=== PATIENT | female | born 1990 | race Two or more races ===

== ENCOUNTER 2018-08-10 06:35 | Inpatient (IN) | payer OTHER ==
[2018-08-10] MEDS: ELECTROLYTE-148 SOLN 1,000 ML IV SCH (07:00)
[2018-08-10 07:36] VITALS: BMI 31.2
[2018-08-10] MEDS ORDERED: IBUPROFEN 600 MG TABLET (FP) PO PRN (07:36)
[2018-08-10] MEDS ORDERED: METHYLERGONOVINE MALEATE 0.2 MG/1 ML AMP IM PRN (07:36)
[2018-08-10] MEDS ORDERED: OXYTOCIN 20 UNITS in 0.9% NS 20 UNIT/1,000 ML INFUS.BAG IV ONE (07:37)
[2018-08-10] MEDS ORDERED: WITCH HAZEL 50% (TUCKS) 40 PAD/JAR PAD TP PRN (07:38)
[2018-08-10] MEDS ORDERED: KETOROLAC TROMETHAMINE 30 MG/1 ML VIAL ONE (07:40)
[2018-08-10] MEDS ORDERED: ceFAZolin SODIUM 1 GM VIAL ONE (07:40)
[2018-08-10] MEDS ORDERED: PHENYLEPHRINE HCL 10 MG/1 ML SINGLE DOSE VIAL ONE (07:40)
[2018-08-10] MEDS ORDERED: CITRIC ACID/SODIUM CITRATE 30 ML UNIT-DOSE CUP PO ONE (07:41)
[2018-08-10] MEDS ORDERED: D5W-LR W/ 20 UNITS OXYTOCIN 1,000 ML IV SCH (07:45)
--- NOTE | 2018-08-10 07:48 | HP ---
Past Medical History - Primary Care Physician PCP:: Maddy Jeffers - Admission Chief Complaint: Prevcious Myomectomy. Previous Section History Source: Patient - Past Medical History ...: 3 ...Para: 1 ...Term: 1 ...: 0 ...Spon : 0 ...Induced : 1 ...Multiple Gestation: 0 ...EDC by Sono: 08/10/18 - Past Surgical History Past Surgical History: Yes: Hx Myomectomy: Yes Hx Transabdominal Cerclage: No - Smoking History Smoking history: Never smoked Have you smoked in the past 12 months: No Aproximately how many cigarettes per day: 0 - Alcohol/Substance Use Hx Alcohol Use: No History of Substance Use: reports: None - Social History History of Recent Travel: No Home Medications - Allergies Allergies/Adverse Reactions: Allergies Allergy/AdvReac Type Severity Reaction Status Date / Time morphine AdvReac Mild Itching Verified 08/10/18 07:18 - Home Medications Home Medications: Ambulatory Orders Vitamins (Sjr) - 1 tab PO DAILY 01/03/14 Physical Exam - Maternity Vital Signs: Vital Signs Temperature 98.2 F 08/10/18 07:15 Pulse Rate 91 H 08/10/18 07:15 Respiratory Rate 18 08/10/18 07:15 Blood Pressure 137/84 08/10/18 07:15 O2 Sat by Pulse Oximetry (%) Constitutional: Yes: Well Nourished, No Distress Cardiovascular: Yes: WNL, Regular Rate and Rhythm Lungs: Clear to auscultation Breast(s): Yes: WNL - Abdominal Exam/OB Fundal Height: 40 Number of Fetuses: Single Presentation: Vertex Contractions: No Category: I Decelerations: None - Vaginal Exam/OB Amniotic Membrane Status: Intact Presentation: Vertex/Position Station: -2 - Physical Exam Integumentary: Yes: WNL ...Motor Strength: WNL Psychiatric: Yes: WNL, Alert, Oriented Problem List - Problems (1) Previous delivery affecting , antepartum Code(s): O34.219 - MATERNAL CARE FOR UNSP TYPE SCAR FROM PREVIOUS DEL (2) H/O myomectomy Code(s): Z98.890 - OTHER SPECIFIED POSTPROCEDURAL STATES (3) 38 weeks gestation of Code(s): Z3A.38 - 38 WEEKS GESTATION OF Assessment/Plan previous section previous myomectomy 38 weeks GBS positive Fibroid uterus Plan Repeat Section
--- NOTE | 2018-08-10 09:06 | OP ---
Operative Note - Note: Operative Date: 08/10/18 Pre-Operative Diagnosis: Previous Section. Previous Myomectomy. IUP at 38 week Operation: Repeat Section. Abdmoninal Myomectomy Findings: 3 cm myoma removed from uterus Live female delivered in OT position Post-Operative Diagnosis: Same as Pre-op Surgeon: Maddy Jeffers Cleaner Laboratory Equipment: Carloz Cortse Anesthesiologist/SUPERVISOR SULFURIC ACID PLANT: Shashank Stevenson Anesthesia: Spinal Estimated Blood Loss (mls): 600 Operative Report Dictated: Yes
[2018-08-10 09:07] LABS: ARTERIAL BLD GAS O2 SATURATION 18.2 % (90-98.9); ARTERIAL BLOOD GAS BASE EXCESS -2.7 meq/l (-2-2); ARTERIAL BLOOD GAS PO2 13.9 mmHg (80-100); ARTERIAL BLOOD GAS pH 7.24 (7.35-7.45)
[2018-08-10 09:11] LABS: VENOUS PC02 54.6 mmHg (38-52); VENOUS PH 7.29 (7.32-7.42)
[2018-08-10] MEDS ORDERED: ONDANSETRON 4 MG/2 ML VIAL IVPUSH PRN (09:16)
[2018-08-10] MEDS ORDERED: TUBERCULIN PPD 5 TU/0.1ML SYRINGE (IN PATIENT USE ONLY) ID ONE (09:21)
[2018-08-10] MEDS ORDERED: LACTATED RINGERS SOLUTION 1,000 ML IV SCH (09:30)
[2018-08-10] MEDS: PRENATAL VITAMINS W/ FOLIC ACID TABLET (FP) PO SCH (11:27)
[2018-08-10] MEDS: OXYTOCIN 20 UNITS in 0.9% NS 20 UNIT/1,000 ML INFUS.BAG IV SCH ×2 (11:55→20:29)
[2018-08-10] MEDS: IBUPROFEN 800 MG/8 ML IJ IVPB PRN ×2 (14:05→21:45)
[2018-08-10] MEDS ORDERED: MEPERIDINE HCL CARPU-JECT 25 MG/1 ML DISP.SYRIN IM PRN (17:09)
[2018-08-10] MEDS ORDERED: PROMETHAZINE HCL 25 MG/1 ML VIAL IM PRN (17:11)
--- NOTE | 2018-08-10 19:29 | OP ---
DATE OF OPERATION: 08/10/2018 PREOPERATIVE DIAGNOSES: Previous myomectomy, previous section, and intrauterine at 38 weeks. OPERATION: Repeat section, abdominal myomectomy. POSTOPERATIVE DIAGNOSES: A 3-cm myoma removed from the serosa of the uterus and live female delivered in left occiput transverse position. SURGEON: Maddy Jeffers MD FLAME ANNEALING MACHINE OPERATOR: CORWIN Hester ANESTHESIA: Spinal. ANESTHESIOLOGIST: Emily Stevenson MD PROCEDURE: Patient was taken to the operating room, placed in supine position, prepped and draped in the usual sterile fashion after spinal anesthesia had been given. Timeout was performed in accordance to hospital regulation. A scalpel was then used to make a low transverse Pfannenstiel skin incision through the patient's previous scar. Cautery was then used to go through layers of abdominal wall to the level of the fascia. Fascia was cut in the midline, and cautery was then used to open the fascia in the following fashion. Serena was then used to bluntly and sharply dissect the rectus muscle off the fascia. Muscles split in the midline. Peritoneal cavity was then entered and carried upward and downward. Bladder retractor was then placed. Scalpel was then used to make a low transverse uterine incision. Incision was carried upward using the bandage scissors. A live female infant was delivered in OT position. Nose and mouth suction performed. Shoulders were delivered without difficulty. Position was LOT. cord clamping was done. Cord was clamped and cut. Infant was handed to the courtesy bus driver. Cord blood obtained. Placenta was manually extracted from the uterus. Uterus exteriorized and cleaned with clean lap pads. Cord pH and cord blood obtained. Uterine incision was then closed, but prior to closure, a 3-cm myoma was noted to be in the way of sewing. The myoma was then removed and submitted to Pathology using cautery. Sharp dissection was done. Incision was then closed using 0 Biosyn suture, first layer of continuous and locking, oversewing the area of the myoma, and second layer imbricating the first layer. Hemostasis was achieved. Some adhesions were noted posteriorly, and Lurdes clamps were then used to clamp the omental adhesions. Free ties were then used to tie off the adhesions after scissors were used to cut the adhesion away from the uterus. Tubes and ovaries were noted to be normal. Hemostasis was achieved. Uterus interiorized. Abdominal cavity cleaned with clean lap pads. Peritoneum then closed using 0 Biosyn suture in continuous fashion. Muscles approximated in midline using 0 Biosyn suture. The fascia was then closed using 0 Vicryl suture in 2 parts. Subcutaneous was then closed using 3-0 Vicryl in interrupted sutures, and skin was then closed using 3-0 Vicryl in subcuticular fashion. Wound was washed and dressed. The patient tolerated the procedure well. ESTIMATED BLOOD LOSS: 600 mL Hope DAVILA/[id number]
[2018-08-11] MEDS: IBUPROFEN 800 MG/8 ML IJ IVPB PRN (04:50)
[2018-08-11] MEDS: OXYTOCIN 20 UNITS in 0.9% NS 20 UNIT/1,000 ML INFUS.BAG IV SCH ×2 (04:53→19:42)
[2018-08-11 07:28] LABS: BASO % 0.3 % (0-2.0); EOS % 0.8 % (0-4.5); HEMATOCRIT 27.8 % (32.4-45.2); HEMOGLOBIN 9.4 GM/dL (10.7-15.3); LYMPH % 10.3 % (8-40); MCH 27.8 pg (25.7-33.7); MCHC 33.7 g/dl (32.0-36.0); MEAN CELL VOLUME 82.3 fl (80-96); MEAN PLT VOLUME 7.9 fl (7.5-11.1); MONO % 5.3 % (3.8-10.2); NEUT % 83.3 % (42.8-82.8); PLATELET COUNT 177 K/MM3 (134-434); RBC 3.37 M/mm3 (3.60-5.2); RDW 12.4 % (11.6-15.6); WHITE BLOOD COUNT 8.4 K/mm3 (4.0-10.0)
[2018-08-11] MEDS ORDERED: oxyCODONE HCL 5 MG TABLET PO PRN ×2 (07:36)
[2018-08-11] MEDS ORDERED: BISACODYL 10 MG SUPP.RECT RC PRN (07:37)
--- NOTE | 2018-08-11 08:19 | PN ---
Progress Note (short form) - Note Progress Note: Anesthesia post op/Pain Pt seen and examined S:Alert and awake, comfortable O: Vital Signs Temperature 98.8 F 08/11/18 07:25 Pulse Rate 80 08/11/18 07:25 Respiratory Rate 18 08/11/18 07:25 Blood Pressure 119/69 08/11/18 07:25 O2 Sat by Pulse Oximetry (%) 100 08/10/18 10:00 CBC, BMP 08/11/18 06:00 A/P Current Active Problems 38 weeks gestation of (Acute) H/O myomectomy (Acute) Previous delivery affecting , antepartum (Acute) s/p repaet c section/myomectomy Doing well post op Continue current care Iban Prieto MD
[2018-08-11] MEDS: PRENATAL VITAMINS W/ FOLIC ACID TABLET (FP) PO SCH (10:00)
[2018-08-11] MEDS: FERROUS SO4 325 MG TABLET (FP) PO SCH ×2 (10:00→21:51)
--- NOTE | 2018-08-11 10:51 | PN ---
Post Progress Note - Subjective Subjective: Pt doing well, having some discomfort. No flatus/BM yet, s/p suppository approx 20 mins ago. Discussed with pt morphine allergy, states it was "itching " was told this was normal. NO hives/SOB/wheezing with morphine. AMbulating, voiding. Tolerating clears. Type of Delivery: Repeat C/S Vital Signs: Vital Signs Temperature 98.8 F 08/11/18 07:25 Pulse Rate 80 08/11/18 07:25 Respiratory Rate 18 08/11/18 07:25 Blood Pressure 119/69 08/11/18 07:25 O2 Sat by Pulse Oximetry (%) 100 08/10/18 10:00 Uterus: Yes: Fundus Firm Incision: Yes: Dressing dry and intact Abdomen/GI: Yes: Abdomen soft Lochia: Yes: Rubra Lochia, amount: Small Extremities: Yes: Calves non-tender Perineum: Yes: Intact Activity: Ambulating - Labs Labs: CBC WBC 8.4 K/mm3 (4.0-10.0) 08/11/18 06:00 RBC 3.37 M/mm3 (3.60-5.2) L 08/11/18 06:00 Hgb 9.4 GM/dL (10.7-15.3) L 08/11/18 06:00 Hct 27.8 % (32.4-45.2) L 08/11/18 06:00 MCV 82.3 fl (80-96) 08/11/18 06:00 MCH 27.8 pg (25.7-33.7) 08/11/18 06:00 MCHC 33.7 g/dl (32.0-36.0) 08/11/18 06:00 RDW 12.4 % (11.6-15.6) 08/11/18 06:00 Plt Count 177 K/MM3 (134-434) D 08/11/18 06:00 MPV 7.9 fl (7.5-11.1) 08/11/18 06:00 Absolute Neuts (auto) 7.0 K/mm3 (1.5-8.0) 08/11/18 06:00 Neutrophils % 83.3 % (42.8-82.8) H 08/11/18 06:00 Lymphocytes % 10.3 % (8-40) D 08/11/18 06:00 Monocytes % 5.3 % (3.8-10.2) 08/11/18 06:00 Eosinophils % 0.8 % (0-4.5) 08/11/18 06:00 Basophils % 0.3 % (0-2.0) 08/11/18 06:00 Nucleated RBC % 0 % (0-0) 08/11/18 06:00 Problem List - Problems (1) Status post delivery Code(s): Z98.89 - OTHER SPECIFIED POSTPROCEDURAL STATES * DO NOT USE * (2) Pain at surgical incision Code(s): L76.82 - OTH POSTPROCEDURAL COMPLICATIONS OF SKIN, SUBCU Assessment/Plan Pt doing well post op AFVSS advance diet to regular as tolerated PO pain meds encourage ambulation routine care can give ultram as ordered yesterday
[2018-08-11] MEDS: traMADol HCL 50 MG TABLET PO PRN ×3 (12:09→22:36)
[2018-08-11] MEDS: SIMETHICONE 80 MG TAB.CHEW (FP) PO PRN ×3 (12:10→22:37)
[2018-08-11] MEDS ORDERED: traMADol HCL 50 MG TABLET PO PRN (17:10)
[2018-08-11] MEDS: ACETAMINOPHEN 325 MG TABLET (FP) PO PRN (17:29)
[2018-08-11] MEDS: ELECTROLYTE-148 SOLN 1,000 ML IV SCH (19:43)
--- NOTE | 2018-08-12 06:15 | PN ---
Progress Note (SOAP) - Subjective Chief Complaint: Pt doing well but with pain - Current Medications Current Medications: Active Medications Acetaminophen (Tylenol -) 650 mg PO Q4H PRN PRN Reason: FEVER Last Admin: 08/11/18 17:29 Dose: 650 mg Bisacodyl (Dulcolax Suppository -) 10 mg RC PRN PRN PRN Reason: CONSTIPATION Last Admin: 08/11/18 10:54 Dose: 10 mg Ferrous Sulfate (Feosol -) 325 mg PO BID [facility] Last Admin: 08/11/18 21:51 Dose: 325 mg Ibuprofen (Motrin -) 600 mg PO Q4H PRN PRN Reason: PAIN LEVEL 1 - 3 Meperidine HCl (Demerol Injection -) 75 mg IM Q6H PRN PRN Reason: PAIN LEVEL 7 - 10 Last Admin: 08/10/18 17:15 Dose: 75 mg Methylergonovine Maleate (Methergine Injection -) 0.2 mg IM Q4H PRN PRN Reason: Excessive Bleeding (L&D) Multivit/Folic Acid/Iron ( Vitamins (Sjr) -) 1 tab PO DAILY [facility] Last Admin: 08/11/18 10:00 Dose: Not Given Promethazine HCl (Phenergan Injection -) 25 mg IM Q6H PRN PRN Reason: NAUSEA AND/OR VOMITING Last Admin: 08/10/18 17:27 Dose: 25 mg Simethicone (Mylicon -) 80 mg PO Q4H PRN PRN Reason: GAS Last Admin: 08/11/18 22:37 Dose: 80 mg Tramadol HCl (Ultram -) 50 mg PO Q6H PRN PRN Reason: PAIN LEVEL 6-10 Last Admin: 08/11/18 22:36 Dose: 50 mg - Objective Vital Signs: Vital Signs Temperature 98.7 F 08/11/18 22:00 Pulse Rate 88 08/11/18 22:00 Respiratory Rate 18 08/11/18 22:00 Blood Pressure 133/78 08/11/18 22:00 O2 Sat by Pulse Oximetry (%) 100 08/10/18 10:00 Constitutional: Yes: Well Nourished, No Distress Cardiovascular: Yes: WNL, Regular Rate and Rhythm Gastrointestinal: Yes: WNL, Soft ....Post : Yes: Uterus firm, Uterus non-tender Breast(s): Yes: WNL Musculoskeletal: Yes: WNL Extremities: Yes: WNL Edema: No Wound/Incision: Yes: Well Approximated, Steri Strips, Dressing Removed Labs Lab Results: CBC, BMP 08/11/18 06:00 Problem List - Problems (1) Previous delivery affecting , antepartum Code(s): O34.219 - MATERNAL CARE FOR UNSP TYPE SCAR FROM PREVIOUS DEL (2) H/O myomectomy Code(s): Z98.890 - OTHER SPECIFIED POSTPROCEDURAL STATES (3) 38 weeks gestation of Code(s): Z3A.38 - 38 WEEKS GESTATION OF Assessment/Plan previous section previous myomectomy Fibroid Uterus POD 2 Anemia Plan Ferrous sulfate colace BID Pain meds OOB Continue present management
[2018-08-12] MEDS: traMADol HCL 50 MG TABLET PO PRN ×3 (06:17→21:37)
[2018-08-12] MEDS ORDERED: DOCUSATE SODIUM 100 MG CAPSULE (FP) PO PRN (06:18)
[2018-08-12] MEDS: ACETAMINOPHEN 325 MG TABLET (FP) PO PRN ×3 (06:18→21:38)
[2018-08-12] MEDS: PRENATAL VITAMINS W/ FOLIC ACID TABLET (FP) PO SCH (10:05)
[2018-08-12] MEDS: FERROUS SO4 325 MG TABLET (FP) PO SCH ×2 (10:05→21:37)
[2018-08-12] MEDS: SIMETHICONE 80 MG TAB.CHEW (FP) PO PRN ×2 (15:37→21:38)
[2018-08-12] MEDS: IBUPROFEN 600 MG TABLET (FP) PO PRN (21:38)
[2018-08-13] MEDS: SIMETHICONE 80 MG TAB.CHEW (FP) PO PRN (03:29)
[2018-08-13] MEDS: IBUPROFEN 600 MG TABLET (FP) PO PRN (03:30)
[2018-08-13] MEDS: ACETAMINOPHEN 325 MG TABLET (FP) PO PRN (03:31)
[2018-08-13] MEDS: traMADol HCL 50 MG TABLET PO PRN (03:31)
[2018-08-13 08:08] LABS: BASO % 0.5 % (0-2.0); EOS % 5.1 % (0-4.5); HEMATOCRIT 23.6 % (32.4-45.2); HEMOGLOBIN 8.1 GM/dL (10.7-15.3); MCH 27.9 pg (25.7-33.7); MCHC 34.2 g/dl (32.0-36.0); MEAN CELL VOLUME 81.7 fl (80-96); MEAN PLT VOLUME 7.3 fl (7.5-11.1); MONO % 9.3 % (3.8-10.2); NEUT % 60.1 % (42.8-82.8); PLATELET COUNT 187 K/MM3 (134-434); RBC 2.89 M/mm3 (3.60-5.2); RDW 12.6 % (11.6-15.6); WHITE BLOOD COUNT 4.4 K/mm3 (4.0-10.0)
[2018-08-13 09:18] VITALS: BP 109/61; PULSE 76; TEMP 98.1
[2018-08-13] MEDS: FERROUS SO4 325 MG TABLET (FP) PO SCH (09:37)
[2018-08-13] MEDS: PRENATAL VITAMINS W/ FOLIC ACID TABLET (FP) PO SCH (09:37)
--- NOTE | 2018-08-13 10:25 | DS ---
Physical Exam-REPAIRER AND CHECKER Vital Signs: Vital Signs Temperature 98.1 F 08/13/18 09:14 Pulse Rate 76 08/13/18 09:14 Respiratory Rate 20 08/13/18 09:14 Blood Pressure 109/61 08/13/18 09:14 O2 Sat by Pulse Oximetry (%) 100 08/10/18 10:00 Constitutional: Yes: Well Nourished, No Distress Neck: Yes: WNL Cardiovascular: Yes: WNL Respiratory: Yes: WNL Gastrointestinal: Yes: WNL, Soft ....Post : Yes: Uterus firm, Uterus non-tender Breast(s): Yes: WNL Musculoskeletal: Yes: WNL Extremities: Yes: WNL Edema: No Wound/Incision: Yes: Clean/Dry, Well Approximated, Steri Strips, Open to air Neurological: Yes: WNL, Alert, Oriented Labs: CBC, BMP 08/13/18 07:45 Delivery - Delivery Section: Low Flap Transverse Type of Anesthesia: Spinal Episiotomy/Laceration: None EBL (cc): 600 Delivery, Single - Stages of Labor Date of Delivery: 08/10/18 Time of Delivery: 08:29 Time Placenta Delivered: 08:30 Placenta: Yes: Manual Removal - Condition of Hair Spinning Machine Operator/Sod Cutter Present: Yes Name: Larissa Lopez Infant Gender: Female Weight: 6 lb 11 oz Position: Left, OT Total Hours ROM (Hrs/Mins): 2mins - 1 Minute Total Score: 9 5 Minutes Total Score: 9 - Feeding Plan Initial Plan: Elected not to breastfeed exclusively throughout hospitalization Discharge Summary Reason For Visit: ADMIT Current Active Problems 38 weeks gestation of (Acute) H/O myomectomy (Acute) Pain at surgical incision (Acute) Previous delivery affecting , antepartum (Acute) Procedures: Principal: Repeat Low transverse Section Condition: Good - Instructions Diet, Activity, Other Instructions: Physical activity Resume your normal everyday activity as tolerated no heavy lifting or exercise until seen by your surgeon. You may walk unlimited emilie of and climb stairs. You may resume driving the car when you feel safe and comfortable behind the wheel. No sexual activity as instructed. Wound care If you have a bandage, leave it on, and keep dry for 48-72 hours. After that time discard the outer bandage. If they are tapes on the skin under the out of bandage leave them in place. They will peel off in the next 7 to 10 days. Do Not Peel them off. You may shower the day after surgery. If there are tapes present on the skin, you may shower over them. Diet There are no dietary restrictions. Eat healthy, high-fiber foods. Drink 6 to 8 glasses of liquid each day. This will assist in keeping your bowels are regular. Pain management You may take Tylenol or acetaminophen or Ibuprofen (for example, Motrin, Advil etc.) from my pain prescription medication is ordered should be taken as prescribed for moderate to severe pain. Call MD for any of the following: Severe pain not relieved by medication Fever of 101 or higher Excessive bleeding or drainage on dressing Inability to urinate Disposition: HOME - Home Medications Comprehensive Discharge Medication List: Ambulatory Orders Vitamins (Sjr) - 1 tab PO DAILY 01/03/14 traMADol HCL [Ultram] 50 mg PO Q8H 7 Days #30 tablet MDD 3 08/13/18
--- NOTE | 2018-08-18 17:24 | PATH ---
Surgical Pathology Report Patient Name: MARY SIBLEY [facility]. Rec. #: [id number] /Age/Gender: 1990 (Age: 28) / F Account: [id number] Location: [facility] OBS/SENIOR PROCESS ENGINEER Taken: 08/10/2018 Received: 08/11/2018 Reported: 08/18/2018 Physicians: Maddy Jeffers M.D. Specimen(s) Received A: PLACENTA B: FIBROID Clinical History , [place] OP x1, 2013, history of fibroid uterus and myomectomy 2012 Final Diagnosis A. PLACENTA, SECTION: 404 G THIRD TRIMESTER PLACENTA WITH TRIVASCULAR UMBILICAL CORD AND UNREMARKABLE PLACENTAL MEMBRANES. B. UTERINE FIBROID, MYOMECTOMY: LEIOMYOMA. Electronically Signed Arleen Vizcarra M.D. Gross Description A. The specimen is received fresh labeled placenta and is a 404 gram, 16.0 x 15.0 x 2.5 cm. placenta with attached membranes and umbilical cord. The attached membranes are gregg, thick, cloudy and insert marginally. The umbilical cord measures 13 cm. in length and averages 1.2 cm. in diameter. The cord inserts eccentrically, 5 cm. to the nearest margin. No true knots or strictures are identified. Cut surface of the umbilical cord reveals 3 vessels. The surface is harris-blue with minimal fibrin deposition and appropriate caliber vessels. The maternal surface is red-brown with focal defects. Sectioning reveals red-brown, spongy parenchyma. No lesions are identified. Air Twist Operator sections are submitted in three cassettes as follows: 1- membrane rolls and umbilical cord; 2-3- full thickness sections of placenta. B. Received in formalin labeled "uterine fibroid," is a 5 g, 3.0 x 2.0 x 1.5 cm nodule, consistent with a fibroid. Surface is gregg-sweet with adhesions. Sectioning reveals gregg, rubbery parenchyma with central degeneration. Air Twist Operator sections are submitted in 2 cassettes. 08/17/2018 saudi08/17/2018
== END 2018-08-13 16:20 | disposition home or self-care (01) | DRG 540 ==
LOC: JLDR 06:35 → J3W 10:15
PROVIDERS: ADMIT Obstetrics & Gynecology; ATTEND Obstetrics & Gynecology
PROC: 10D00Z1 Extraction of Products of Conception, Low, Open Approach (ICD-10-PCS; principal; 2018-08-10)
PROC: 0UB90ZZ Excision of Uterus, Open Approach (ICD-10-PCS; 2018-08-10)
DX: O34.219 Maternal care for unspecified type scar from previous cesarean delivery (principal); O34.13 Maternal care for benign tumor of corpus uteri, third trimester; Z3A.38 38 weeks gestation of pregnancy; Z37.0 Single live birth
CPT/HCPCS: 36415; 36600; 82803; 85025; 87389; 88305-TC; 88307-TC

== ENCOUNTER 2024-03-11 22:47 | Emergency (ER) | payer OTHER ==
[2024-03-11 22:54] VITALS: BP 132/84; PULSE 101; RESP 20; TEMP 98.7; BMI 32.1
[2024-03-12] MEDS: LIDOCAINE PATCH REMOVAL MC SCH (00:23)
[2024-03-12] MEDS ORDERED: LIDOCAINE 4% PATCH TP ONE (00:56)
[2024-03-12] MEDS ORDERED: KETOROLAC TROMETHAMINE 15 MG/ML VIAL ONE (00:56)
[2024-03-12] MEDS ORDERED: ACETAMINOPHEN 325 MG TABLET (FP) ONE (00:56)
[2024-03-12] MEDS: ACETAMINOPHEN 325 MG TABLET (FP) PO ONE (01:05)
[2024-03-12] MEDS: LIDOCAINE 5% TOPICAL PATCH TP ONE (01:05)
[2024-03-12] MEDS: KETOROLAC TROMETHAMINE 15 MG/ML VIAL IM ONE (01:05)
== END 2024-03-12 01:49 | disposition home or self-care (01) ==
LOC: JER 22:47
PROC: 3E0233Z Introduction of Anti-inflammatory into Muscle, Percutaneous Approach (ICD-10-PCS; principal; 2024-03-12)
DX: M79.2 Neuralgia and neuritis, unspecified (principal)
CPT/HCPCS: 99284-25